=== PATIENT | female | born 1960 | race Caucasian/White ===

== ENCOUNTER → 2017-11-22 08:45 | Outpatient (CLI) | payer OTHER, SELFPAY ==
--- NOTE | 2017-11-22 08:51 | US_ITS ---
STUDY: ULTRASOUND BREAST - Bilateral REASON FOR EXAM: Female, 57 years old. Abnormal mammogram with ruptured left breast implant and history of multiple breast cysts, follow-up breast ultrasound study. TECHNIQUE: Axial and longitudinal images of the bilateral breast were performed with a high resolution ultrasound transducer. COMPARISON: 11/11/2016, 03/19/2015 and 09/19/2013 breast ultrasound studies. FINDINGS: RIGHT Breast: There are approximately 20 lesions throughout the right breast most of which are subcentimeter in size being including right retroareolar region where 3 out of 4 which show hypoechoic internal echoes consistent with solid lesions, all showing probably benign characteristics. The 6 to 8:00 position show numerous cysts as well with the exception of one lipoma with the largest measuring approximately 1.5 x 1.4 x 1 cm in the 8:00 position. Posterior Enhancement: None. Posterior Shadowin cystic lesion noted indicating calcification. Margins: Smooth margin in all are seen. Echogenicity: Hypoechoic. (Minimal internal and moderate peripheral color Doppler signal seen with one hypoechoic lesion image #[id number]). Visualized incompletely seen right anterior breast implant appears intact. LEFT breast: There are approximately 15 round subcentimeter peripherally hypoechoic cystic lesions noted throughout the retroareolar, 6:00 and 9:00 positions, all appear probably benign. Posterior enhancement: Mild all lesion seen. Posterior shadowing colon none. Margins: Smooth margins at all seen. Echogenicity: Hypoechoic. Incompletely seen left breast implant appears ruptured with decreased size and visualized curvilinear margins. IMPRESSION: Redemonstration bilateral cystic changes throughout the breasts with probably benign findings. Recommend bilateral breast ultrasound in 6 months to ensure stability of these findings with short-term interval follow-up. Ruptured left breast implant, incompletely seen. ASSESSMENT CATEGORY: BIRADS Category 3: Probably Benign - Short-Interval Follow-up Suggested. A letter regarding these results will be sent to the patient by the facility within 30 days. Electronically Signed: Germán Harrington, at 19:39 EDT Tel , Service support , STUDY: ULTRASOUND BREAST - Bilateral REASON FOR EXAM: Female, 57 years old. Abnormal mammogram with ruptured left breast implant and history of multiple breast cysts, follow-up breast ultrasound study. TECHNIQUE: Axial and longitudinal images of the bilateral breast were performed with a high resolution ultrasound transducer. COMPARISON: 11/11/2016, 03/19/2015 and 09/19/2013 breast ultrasound studies. FINDINGS: RIGHT Breast: There are approximately 20 lesions throughout the right breast most of which are subcentimeter in size being including right retroareolar region where 3 out of 4 which show hypoechoic internal echoes consistent with solid lesions, all showing probably benign characteristics. The 6 to 8:00 position show numerous cysts as well with the exception of one lipoma with the largest measuring approximately 1.5 x 1.4 x 1 cm in the 8:00 position. Posterior Enhancement: None. Posterior Shadowin cystic lesion noted indicating calcification. Margins: Smooth margin in all are seen. Echogenicity: Hypoechoic. (Minimal internal and moderate peripheral color Doppler signal seen with one hypoechoic lesion image #[id number]). Visualized incompletely seen right anterior breast implant appears intact. LEFT breast: There are approximately 15 round subcentimeter peripherally hypoechoic cystic lesions noted throughout the retroareolar, 6:00 and 9:00 positions, all appear probably benign. Posterior enhancement: Mild all lesion seen. Posterior shadowing colon none. Margins: Smooth margins at all seen. Echogenicity: Hypoechoic. Incompletely seen left breast implant appears ruptured with decreased size and visualized curvilinear margins. US/Breast Complete Unilateral IMPRESSION: Redemonstration bilateral cystic changes throughout the breasts with probably benign findings. Recommend bilateral breast ultrasound in 6 months to ensure stability of these findings with short-term interval follow-up. Ruptured left breast implant, incompletely seen. ASSESSMENT CATEGORY: BIRADS Category 3: Probably Benign - Short-Interval Follow-up Suggested. A letter regarding these results will be sent to the patient by the facility within 30 days. Electronically Signed: Germán Harrington, at 20:16 EDT Tel , Service support ,
--- NOTE | 2017-11-22 09:40 | HPBI_ITS ---
MAMMOGRAPHY - BILATERAL SCREENING 3-D LILLIAN SYNTHESIS REASON FOR EXAM: Female, 57 years old. Bilateral Screening 3-D tomosynthesis. Left breast implant rupture. PERTINENT HISTORY: Family history of breast carcinoma, grandmother. TECHNIQUE: 2-D mammograms and 3-D Lillian synthesis of the breast (s) were performed. CAD was performed. COMPARISON: 11/11/2016 mammogram. FINDINGS: The breast composition is scattered fibroglandular Scattered benign calcifications are seen. No dense spiculated masses or abnormal microcalcification cluster are identified. No architectural distortion, adenopathy, skin thickening or nipple retraction. Visualize right breast implant appears intact. A collapsed ruptured left breast implant noted again, appears unchanged. There has been no significant change since the prior study. HPBI/SCREENING MAMM (CAD), BILAT IMPRESSION: Probably benign mammographic findings. Bilateral mammogram and bilateral breast ultrasound recommended for short term interval follow-up of probably benign findings. ASSESSMENT CATEGORY: BIRADS Category 3: Probably Benign - Short-Interval Follow-up Suggested. A letter regarding these results will be sent to the patient by the facility within 30 days. FOLLOW UP RECOMMENDATION: Follow up recommended within 6 months. (C) Approximately 10% of breast cancers are not detected by mammography. A normal mammogram should not delay biopsy of a clinically suspicious abnormality. Electronically Signed: Germán Harrington, at 19:53 EDT Tel , Service support ,
== END ==
DX: Q83.9 Congenital malformation of breast, unspecified (principal); Z12.31 Encounter for screening mammogram for malignant neoplasm of breast; T85.898A Other specified complication of other internal prosthetic devices, implants and grafts, initial encounter
CPT/HCPCS: 76641; 77063; 77067

== ENCOUNTER → 2018-03-28 12:43 | Outpatient (CLI) | payer OTHER, SELFPAY ==
--- NOTE | 2018-03-28 12:46 | VDLE_ITS ---
Reason For Study: LLE EDEMA Procedure LEFT Exam performed in department. CFV is compressible, spontaneous, phasic, The exam was diagnostic. competent, and demonstrates normal A preliminary report was called and/or faxed augmentation. to Dr. Florian's office @ 1:40 pm @ FV is compressible, spontaneous, phasic, . competent and demonstrates normal augmentation. POP V is compressible, spontaneous, phasic, competent and demonstrates normal augmentation. T/P Trunk is compressible. PTV is compressible. LT PerV is compressible. SFJ is incompetent. GSV above knee is incompetent > .5 seconds with max diameter of 0.731 x 0.862cm. GSV is competent below knee. SSV is competent. Interpretation Summary Deep veins of the left lower extremity are patent and compressible segmentally. There is no evidence of left lower extremity deep vein thrombosis. Valvular competence appears intact within the proximal deep venous system on the left . The left greater saphenous vein appears patent and compressible segmentally. The left sapheno-femoral junction is incompetent . The left greater saphenous vein appears incompetent above the knee. The left greater saphenous vein appears competent below the knee. The left small saphenous vein is patent and competent. Ordering Physician: Ike Florian Referring Physician: Ike Florian Performed By: Nova Hayes, BRENNAN, RVT
== END ==
PROVIDERS: Visit Provider Family Medicine
DX: R60.9 Edema, unspecified (principal)
CPT/HCPCS: 93971

== ENCOUNTER → 2018-06-22 13:54 | Outpatient (CLI) | payer OTHER, SELFPAY ==
--- NOTE | 2018-06-22 13:57 | BI_ITS ---
MAMMOGRAPHY - BILATERAL DIAGNOSTIC REASON FOR EXAM: Female, 57 years old. History of bilateral breast reduction surgery and implant removal. PERTINENT HISTORY: Grandmother with breast cancer. TECHNIQUE: Digital bilateral breast chang (3D mammographic acquisition) in the CC and MLO projections. 2-D mediolateral oblique (MLO) and craniocaudad (CC) views of both breasts were obtained. CAD: Full Field Digital Mammography with Computer Added Detection was performed. COMPARISON: Comparison is made with prior study dated November 22, 2017. FINDINGS: Breast Composition: The breasts are heterogeneously dense, which may obscure small masses. There are no dominant masses or suspicious calcifications. Since prior study, the patient underwent bilateral breast reduction surgery and removal of the bilateral breast implants. Stable appearance of the scattered microcalcifications in the retroareolar regions of both breasts. No other significant abnormalities are identified. BI/DIAG MAMM W/CAD, BILAT IMPRESSION: Stable bilateral diagnostic mammogram. Status post removal of the breast implants and bilateral breast reduction surgery One year follow-up recommended. (A) ASSESSMENT CATEGORY: BIRADS Category 2: Benign. A letter regarding these results will be sent to the patient by the facility within 30 days. Approximately 10% of breast cancers are not detected by mammography. A normal mammogram should not delay biopsy of a clinically suspicious abnormality. Electronically Signed: Chalino Segura MD at 8:34 EDT Tel [phone], Service support ,
--- NOTE | 2018-06-22 13:57 | US_ITS ---
STUDY: ULTRASOUND BREAST - RIGHT REASON FOR EXAM: Female, 57 years old. Status post bilateral implant removal and breast reduction surgery. TECHNIQUE: Axial and longitudinal images of the RIGHT breast were performed with a high resolution ultrasound transducer. COMPARISON: Comparison is made with prior ultrasound examination dated November 22, 2017 and prior mammogram done earlier in the day. FINDINGS: RIGHT Breast: Multiple small cysts are seen throughout the breast. In the inframammary fold of the right breast at the level of the scar, there is a 2.7 cm x 5.3 cm x 1.9 cm fluid collection. This may represent a postoperative hematoma or seroma. There is also evidence of a 9 mm x 7 mm x 5 mm hypoechoic nodule at the 6:00 position breast 1 cm from nipple most likely representing a cyst with debris within. IMPRESSION: 2.7 cm x 5.3 cm x 1.9 cm fluid collection in the inframammary fold of the right breast. This most likely represents a resolving hematoma. Stable multiple cysts. ASSESSMENT CATEGORY: BIRADS Category 2: Benign. A letter regarding these results will be sent to the patient by the facility within 30 days. Electronically Signed: Chalino Segura MD at 8:28 EDT Tel [phone], Service support , STUDY: ULTRASOUND BREAST - LEFT REASON FOR EXAM: Female, 57 years old. Bilateral breast reduction surgery and implant removal. TECHNIQUE: Axial and longitudinal images of the LEFT breast were performed with a high resolution ultrasound transducer. COMPARISON: Comparison is made with the prior ultrasound dated November 22, 2017 and prior mammogram done earlier in the day. FINDINGS: LEFT Breast: Once again, multiple cysts are seen throughout the breast. There is a 9 mm x 8 mm x 7 mm hypoechoic nodule most likely representing a cyst with debris within it. At the 4:00 position of the breast at a centimeter from nipple, there is a 3.7 cm x 4.2 cm x 0.7 cm fluid collection. This may represent a postoperative hematoma or seroma. US/Breast Complete Bilateral IMPRESSION: Stable appearance of the multiple cysts. Fluid collection at the 4:00 position breast of a thrombus from nipple as described. This may represent postoperative seroma or hematoma. ASSESSMENT CATEGORY: BIRADS Category 2: Benign. A letter regarding these results will be sent to the patient by the facility within 30 days. Electronically Signed: Chalino Segura MD at 8:29 EDT Tel [phone], Service support ,
== END ==
PROVIDERS: Referring Provider Family Medicine; Visit Provider Family Medicine
DX: Q83.9 Congenital malformation of breast, unspecified (principal)
CPT/HCPCS: 76641; 77062; 77066; G0279

== ENCOUNTER → 2019-06-25 | Outpatient (CLI) | payer OTHER, SELFPAY ==
--- NOTE | 2019-06-25 13:48 | BI_ITS ---
MAMMOGRAPHY - BILATERAL SCREENING REASON FOR EXAM: Female, 58 years old. Routine annual screening examination. PERTINENT HISTORY: Grandmother with breast cancer. History of prior bilateral breast reduction surgery and implant removal. TECHNIQUE: Digital bilateral breast lillian (3D mammographic acquisition) in the CC and MLO projections. 2-D mediolateral oblique (MLO) and craniocaudad (CC) views of both breasts were obtained. CAD: Full Field Digital Mammography with Computer Added Detection was performed. COMPARISON: Comparison is made with prior examination dated June 22, 2018 and November 23, 2007. FINDINGS: Breast Composition: The breasts are heterogeneously dense, which may obscure small masses. There are no dominant masses or suspicious calcifications. Stable scattered microcalcifications in the retroareolar regions of both breasts. Stable appearance of the fat-containing bilateral axillary lymph nodes. No other significant abnormalities are identified. There has been no significant change since the prior study. BI/SCREEN MAMM (CAD) W/LILLIAN BILAT IMPRESSION: Stable bilateral screening mammogram. Yearly follow-up mammogram recommended. (A) ASSESSMENT CATEGORY: BIRADS Category 2: Benign. A letter regarding these results will be sent to the patient by the facility within 30 days. Approximately 10% of breast cancers are not detected by mammography. A normal mammogram should not delay biopsy of a clinically suspicious abnormality. [id number] Electronically Signed: Chalino Segura, at 13:39 EDT , Service support ,
--- NOTE | 2019-06-25 13:50 | US_ITS ---
STUDY: ULTRASOUND BREAST - BILATERAL REASON FOR EXAM: Female, 58 years old. History of prior breast reduction surgery and breast implants with removal. TECHNIQUE: Axial and longitudinal images of the BILATERAL breast were performed with a high resolution ultrasound transducer. COMPARISON: Comparison is made with prior ultrasound of the right breast dated June 22, 2018 and ultrasound of the left breast dated June 22, 2018. FINDINGS: BILATERAL Breast: Once again, multiple cysts are seen throughout the right and left breast. The previously seen fluid collection in the inframammary fold of the right breast has resolved. Stable 9 mm x 7 mm x 6 mm hypoechoic nodule at the 6:00 position of the breast at 1 cm from nipple. This may represent a cyst with debris. Multiple cysts are once again seen in the left breast. There is a 7 mm x 7 mm x 7 mm solid/cystic nodule at the 6:00 position the breast at 2 cm from nipple. This is unchanged. The previously seen fluid collection has resolved. US/Breast Complete Bilateral IMPRESSION: Stable examination with the interval resolution of the fluid collections in both breasts. ASSESSMENT CATEGORY: BIRADS Category 2: Benign. A letter regarding these results will be sent to the patient by the facility within 30 days. Electronically Signed: Chalino Segura, at 8:21 EDT , Service support ,
== END | disposition home or self-care (01) ==
PROVIDERS: Referring Provider Family Medicine; Visit Provider Family Medicine
DX: Z12.31 Encounter for screening mammogram for malignant neoplasm of breast (principal); Z98.86 Personal history of breast implant removal
CPT/HCPCS: 76641; 77063; 77067

== ENCOUNTER → 2020-06-26 | Outpatient (CLI) | payer OTHER, SELFPAY ==
--- NOTE | 2020-06-26 14:05 | BI_ITS ---
MAMMOGRAPHY - BILATERAL SCREENING REASON FOR EXAM: Female, 59 years old. Routine annual screening examination. PERTINENT HISTORY: Grandmother with breast cancer. Aunt with breast cancer. TECHNIQUE: Digital bilateral breast lillian (3D mammographic acquisition) in the CC and MLO projections. 2-D mediolateral oblique (MLO) and craniocaudad (CC) views of both breasts were obtained. CAD: Full Field Digital Mammography with Computer Added Detection was performed. COMPARISON: Comparison is made with prior examination dated 06/25/2019 and 06/22/2018. FINDINGS: Breast Composition: The breasts are heterogeneously dense, which may obscure small masses. There are no dominant masses or suspicious calcifications. Stable benign appearing bilateral axillary lymph nodes. Stable appearance of the microcalcifications in the retroareolar regions of both breasts. No other significant abnormalities are identified. There has been no significant change since the prior study. BI/SCREEN MAMM (CAD) W/LILLIAN BILAT IMPRESSION: Stable bilateral screening mammogram. Yearly follow-up mammogram recommended. (A) ASSESSMENT CATEGORY: BIRADS Category 2: Benign. A letter regarding these results will be sent to the patient by the facility within 30 days. Approximately 10% of breast cancers are not detected by mammography. A normal mammogram should not delay biopsy of a clinically suspicious abnormality. [id number] Electronically Signed: Chalino Segura, at 15:03 EDT , Service support ,
== END | disposition home or self-care (01) ==
LOC: OPBI 13:49
PROVIDERS: Referring Provider Family Medicine; Visit Provider Family Medicine
DX: Z12.31 Encounter for screening mammogram for malignant neoplasm of breast (principal)
CPT/HCPCS: 77063; 77067

== ENCOUNTER → 2020-07-21 13:56 | Outpatient (CLI) | payer OTHER, SELFPAY ==
--- NOTE | 2020-07-21 13:59 | US_ITS ---
INDICATION: bilat known breast masses EXAMINATION: Ultrasound RIGHT US Breast Unilateral Complete TECHNIQUE: Routine hernández scale and color-doppler imaging was performed of the bilateral breasts. COMPARISON: Previous mammogram obtained on 06/26/2020, previous yearly intervals on 06/17/2019 FINDINGS: Four quadrant evaluation was performed including the axilla and retroareolar nipple regions. There is a complex cystic cystic structure seen in the right breast at 3 cm from the nipple measuring 0.9 x 1.0 x 0.6 cm in size at the 8 o''clock position of the right breast. Some additional adjacent cysts some containing debris are also identified in this location which were previously identified and are unchanged. In the inferior aspect of the right breast at 6 o''clock position is a 1.3 cm hematoma which was previously identified and is unchanged. Left breast containing 2 cysts at the 6 o''clock position 1 which contains debris and this is unchanged. There is no sonographic architectural distortion. IMPRESSION: Multiple cysts are noted in each breast more pronounced on the right which are unchanged. ASSESSMENT CATEGORY BIRADS Category 2: Benign. FOLLOW UP RECOMMENDATION: Yearly follow up mammogram recommended. NOTES: 7-10% of cancers are not identified by mammography. Any palpable finding should be evaluated independently of this report. Guidelines for Early Breast Cancer Detection: * Annual breast examination by a physician or other health care provider. * Monthly breast self-examination. * Annual mammography screening beginning at age 40 and continuing for as long as a woman is in good health. * Women at increased risk (e.g., family history, genetic tendency, past breast cancer) should talk with their doctors about the benefits and limitations of starting mammography screening earlier, having additional tests (e.g., breast ultrasound or MRI) or having more frequent exams. Screening MRI is recommended for women with an approximately 20-25% or greater lifetime risk of breast cancer, including women with a strong family history of breast or ovarian cancer and women who were treated for Hodgkin''''s disease. Electronically Signed: Navarro Jensen, at 17:12 EST Tel , Service support , US/Breast Complete Bilateral
== END ==
PROVIDERS: Referring Provider Family Medicine; Visit Provider Family Medicine
DX: N60.02 Solitary cyst of left breast (principal); N60.01 Solitary cyst of right breast
CPT/HCPCS: 76641

== ENCOUNTER → 2022-07-29 | Outpatient (CLI) | payer BC, SELFPAY ==
--- NOTE | 2022-07-29 12:39 | BI_ITS ---
MAMMOGRAPHY - BILATERAL SCREENING REASON FOR EXAM: Female, 62 years old. Routine annual screening examination. PERTINENT HISTORY: Grandmother with breast cancer. Aunt with breast cancer. History of prior bilateral breast reduction surgery and implant removal. TECHNIQUE: Digital bilateral breast lillian (3D mammographic acquisition) in the CC and MLO projections. 2-D mediolateral oblique (MLO) and craniocaudad (CC) views of both breasts were obtained. CAD: Full Field Digital Mammography with Computer Added Detection was performed. COMPARISON: Comparison is made with prior study dated 06/26/2020 and 06/25/2019. FINDINGS: Breast Composition: The breasts are heterogeneously dense, which may obscure small masses. There are no dominant masses or suspicious calcifications. Stable benign-appearing bilateral axillary lymph nodes. No other significant abnormalities are identified. There has been no significant change since the prior study. BI/SCRN MAMM (CAD)W/LILLIAN BILAT IMPRESSION: Stable bilateral screening mammogram. Yearly follow-up mammogram recommended. (A) ASSESSMENT CATEGORY: Approximately 10% of breast cancers are not detected by mammography. A normal mammogram should not delay biopsy of a clinically suspicious abnormality. [id number] Electronically Signed: Chalino Segura MD at 13:24 EST ,
--- NOTE | 2022-07-29 13:15 | US_ITS ---
STUDY: ULTRASOUND BREAST - RIGHT REASON FOR EXAM: Female, 62 years old. Bilateral breast lumps. TECHNIQUE: Axial and longitudinal images of the RIGHT breast were performed with a high resolution ultrasound transducer. # OF IMAGES: 136 COMPARISON: Comparison is made with prior ultrasound of the right breast dated 07/21/2020. FINDINGS: RIGHT Breast: The right breast was examined with ultrasound. Multiple cysts are seen. The largest cyst is at the 6 o''clock position of the breast. It measures 1 cm x 1.4 sign by 1.1 cm IMPRESSION: Multiple cysts are seen in the right breast. Stable examination. ASSESSMENT CATEGORY: BIRADS Category 2: Benign. A letter regarding these results will be sent to the patient by the facility within 30 days. Electronically Signed: Chalino Segura MD at 15:37 EST , STUDY: ULTRASOUND BREAST - LEFT REASON FOR EXAM: Female, 62 years old. History of breast cysts. TECHNIQUE: Axial and longitudinal images of the LEFT breast were performed with a high resolution ultrasound transducer. # OF IMAGES: 136 COMPARISON: Comparison is made with prior ultrasound of the left breast dated number 2019. FINDINGS: LEFT Breast: There is a 6 mm x 6 mm x 4 mm cyst with low level echoes within it at the 6 o''clock position breast at 2 cm from nipple. There is also evidence of a 6 mm by 8mm by 5 mm cyst at the 5 o''clock position breast at 2 cm from the nipple. US/Breast Complete Unilateral IMPRESSION: 2 subcentimeter cysts are seen at the 5 o''clock and 6 o''clock radient. ASSESSMENT CATEGORY: BIRADS Category 2: Benign. A letter regarding these results will be sent to the patient by the facility within 30 days. Electronically Signed: Chalino Segura MD at 15:38 EST ,
== END | disposition home or self-care (01) ==
LOC: OPBI 12:36
PROVIDERS: Referring Provider Family Medicine; Visit Provider Family Medicine
DX: Z12.31 Encounter for screening mammogram for malignant neoplasm of breast (principal); N60.01 Solitary cyst of right breast
CPT/HCPCS: 76641; 77063; 77067

== ENCOUNTER → 2023-06-14 | Outpatient (CLI) | payer BC, SELFPAY ==
--- NOTE | 2023-06-14 08:51 | US_ITS ---
EXAM: US SOFT TISSUES HEAD AND NECK, THYROID CLINICAL INDICATION: ENLARGEMENT TECHNIQUE: Spaulding scale and color doppler imaging was performed of the thyroid gland. COMPARISON: No relevant prior studies available. FINDINGS: LEFT THYROID LOBE: Surgical absence of the left thyroid lobe. RIGHT THYROID LOBE: Right thyroid lobe measures 4.1 x 1.3 x 1.5 cm. Complex 6.5 mm right thyroid nodule noted with isoechoic echotexture, wider than tall, well-defined and without microcalcification. TI-RADS points: 3. TI-RADS category: TR3. This nodule is mildly suspicious but no FNA or follow-up is necessary given the small size of this nodule. 3 mm colloid cyst also noted within the right thyroid lobe. Echogenicity of the right thyroid lobe is otherwise homogeneous. ISTHMUS: Isthmus measures 2.8 mm in AP dimension. No thyroid nodules are present. US/Thyroid IMPRESSION: 1. Surgical absence of the left thyroid lobe. 2. 6.5 mm TI-RADS category 3 right thyroid nodule as described above. Electronically Signed: Jack Light MD at 8:44 EDT ,
--- NOTE | 2023-06-14 08:51 | BI_ITS ---
MAMMOGRAPHY - BILATERAL DIAGNOSTIC REASON FOR EXAM: Female, 62 years old. ABN MAMM PERTINENT HISTORY: Non-contributory. TECHNIQUE: Digital examination. Mediolateral oblique (MLO) and craniocaudad (CC) views of both breasts were obtained. CAD: CAD was performed on this study. COMPARISON: 07/29/2022 FINDINGS: Breast Composition: The breasts are heterogeneously dense, which may obscure small masses. There are no dominant masses or suspicious calcifications. No other significant abnormalities are identified. BI/DIAG MAMM W/CAD, BILAT IMPRESSION: Stable bilateral diagnostic mammogram. Ultrasound will be obtained. ASSESSMENT CATEGORY: BIRADS Category 0: Incomplete. Need additional imaging evaluation. A letter regarding these results will be sent to the patient by the facility within 30 days. FOLLOW UP RECOMMENDATION: Ultrasound Recommended. (I) Approximately 10% of breast cancers are not detected by mammography. A normal mammogram should not delay biopsy of a clinically suspicious abnormality. Electronically Signed: Jose Gonzalez MD at 13:25 EDT ,
--- NOTE | 2023-06-14 09:37 | US_ITS ---
STUDY: ULTRASOUND BREAST - BILATERAL REASON FOR EXAM: Female, 62 years old. Bilateral breast pain. TECHNIQUE: Axial and longitudinal images of the BILATERAL breast were performed with a high resolution ultrasound transducer. # OF IMAGES: 139 COMPARISON: Comparison is made with prior examination dated July 21, 2020 and July 29, 2022. FINDINGS: Right Breast: Persistent 1.1 cm x 1.4 cm x 1.1 cm heterogeneous solid nodule along the inferior mammary fold. Scattered small cysts are seen. Study: Ultrasound left breast: The entire left breast was examined with ultrasound. Small cysts are once again seen. At the 6:00 position in the breast, there is a 7 mm x 6 mm x 4 mm complex solid and cystic nodule. This is unchanged. US/Breast Complete Bilateral IMPRESSION: Stable examination. ASSESSMENT CATEGORY: BIRADS Category 2: Benign. A letter regarding these results will be sent to the patient by the facility within 30 days. Electronically Signed: Chalino Segura MD at 10:09 EDT ,
== END | disposition home or self-care (01) ==
LOC: OPBI 08:48
PROVIDERS: PCP Family Medicine; Referring Provider Family Medicine; Visit Provider Family Medicine
DX: R92.8 Other abnormal and inconclusive findings on diagnostic imaging of breast (principal); E04.9 Nontoxic goiter, unspecified
CPT/HCPCS: 76536; 76641; 77062; 77066; G0279

== ENCOUNTER → 2024-06-18 | Outpatient (CLI) | payer BC, SELFPAY ==
--- NOTE | 2024-06-18 08:51 | BI_ITS ---
MAMMOGRAPHY - BILATERAL DIAGNOSTIC REASON FOR EXAM: Female, 63 years old. Fullness of both breasts. PERTINENT HISTORY: Grandmother with breast cancer. History of prior bilateral breast implant surgery with breast reduction and removal. TECHNIQUE: Digital bilateral breast chang (3D mammographic acquisition) in the CC and MLO projections. 2-D mediolateral oblique (MLO) and craniocaudad (CC) views of both breasts were obtained. CAD: Full Field Digital Mammography with Computer Added Detection was performed. COMPARISON: Comparison is made with prior study dated June 14, 2023 and July 29, 2022. FINDINGS: Breast Composition: The breasts are heterogeneously dense, which may obscure small masses. There are no dominant masses or suspicious calcifications. Stable bilateral scattered microcalcifications. Stable small bilateral axillary lymph nodes. No other significant abnormalities are identified. There has been no significant change since the prior study. BI/DIAG MAMM W/CAD, BILAT IMPRESSION: Stable bilateral diagnostic mammogram. One year follow-up recommended. (A) ASSESSMENT CATEGORY: BIRADS Category 2: Benign. A letter regarding these results will be sent to the patient by the facility within 30 days. Approximately 10% of breast cancers are not detected by mammography. A normal mammogram should not delay biopsy of a clinically suspicious abnormality. Electronically Signed: Chalino Segura MD at 11:16 EDT ,
--- NOTE | 2024-06-18 09:52 | US_ITS ---
STUDY: ULTRASOUND BREAST - RIGHT REASON FOR EXAM: Female, 63 years old. Follow up for numerous cysts in both breasts. TECHNIQUE: Axial and longitudinal images of the RIGHT breast were performed with a high resolution ultrasound transducer. # OF IMAGES: 221 COMPARISON: Comparison is made with prior sonogram of the right breast dated June 14, 2023. FINDINGS: RIGHT Breast: The lower inner quadrant of the right breast was examined with ultrasound. Stable 9 mm x 15 mm x 8 mm heterogeneous nodule at the 6:00 position of the breast. Stable 6 mm x 7 mm x 5 mm hypoechoic nodule with calcification at the 8:00 position breast at 7 cm from nipple. 2 adjacent cysts are seen at the 7 and 8:00 position the breast measuring 7 mm x 11 mm x 4 mm. IMPRESSION: Stable examination. ASSESSMENT CATEGORY: BIRADS Category 2: Benign. A letter regarding these results will be sent to the patient by the facility within 30 days. Electronically Signed: Chalino Segura MD at 14:04 EDT , STUDY: ULTRASOUND BREAST - LEFT REASON FOR EXAM: Female, 63 years old. Left breast cyst. TECHNIQUE: Axial and longitudinal images of the LEFT breast were performed with a high resolution ultrasound transducer. # OF IMAGES: 221 COMPARISON: Comparison is made with prior study dated July 29, 2022. FINDINGS: LEFT Breast: The lower outer quadrant of the left breast was examined with ultrasound. Stable 6 mm x 6 mm x 5 mm cyst with low-level echoes seen at the 6:00 position breast at 2 cm from the nipple. Stable 8 mm x 8 mm x 7 mm cyst at the 5:00 position in the breast. US/Breast Complete Unilateral IMPRESSION: Stable examination. ASSESSMENT CATEGORY: BIRADS Category 2: Benign. A letter regarding these results will be sent to the patient by the facility within 30 days. Electronically Signed: Chalino Segura MD at 14:05 EDT ,
== END | disposition home or self-care (01) ==
PROVIDERS: PCP Family Medicine; Referring Provider Family Medicine; Visit Provider Family Medicine
DX: Z12.31 Encounter for screening mammogram for malignant neoplasm of breast (principal); R92.8 Other abnormal and inconclusive findings on diagnostic imaging of breast
CPT/HCPCS: 76641; 77062; 77066; G0279